=== PATIENT | female | born 1985 | race Caucasian/White ===

== ENCOUNTER 2020-10-14 08:12 | Outpatient (CLI) | payer OTHER ==
[2020-10-14 20:43] LABS: SARS-CoV-2 PCR by NAA Not Detected (NotDetected)
== END 2020-10-14 08:13 | disposition home or self-care (01) ==
LOC: CSHLAB 08:12
PROVIDERS: ATTEND Obstetrics & Gynecology
DX: Z20.822 Contact with and (suspected) exposure to COVID-19 (principal)
CPT/HCPCS: 87635; U0003; U0005

== ENCOUNTER 2020-10-18 10:19 | Inpatient (IN) | payer OTHER ==
[2020-10-18] MEDS ORDERED: Bicitra 30 ML UDCUP PO PRN (10:56)
[2020-10-18] MEDS ORDERED: Ondansetron PF 4 MG/2 ML Vial IVP PRN ×3 (10:56→17:07)
[2020-10-18] MEDS ORDERED: hydrALAZINE 20 MG/ML VIAL SLOW IVP PRN ×2 (10:56→17:07)
[2020-10-18] MEDS ORDERED: Butorphanol Tartrate 1 MG/ML VIAL SLOW IVP PRN (10:56)
[2020-10-18] MEDS ORDERED: Famotidine/PF 20 mg/2ml Vial SLOW IVP PRN (10:56)
[2020-10-18] MEDS ORDERED: CEFAZOLIN 2 GM in Premix Bag 1 BAG IVPB SCH (10:56)
[2020-10-18] MEDS ORDERED: Lactated Ringer's 1,000 ML IV SCH (10:56)
[2020-10-18] MEDS ORDERED: Promethazine HCl 25 MG/ML VIAL IM PRN ×2 (10:56→15:45)
[2020-10-18 11:12] VITALS: BMI 27.4
[2020-10-18 11:37] LABS: Hemoglobin 12.6 g/dL (12.0-15.5); Mean Corpuscular HGB CONC 33.9 g/dL (32.0-36.0); Mean Corpuscular Hemoglobin 32.1 pg (27.0-33.0); Mean Corpuscular Volume 94.9 fl (81.6-98.3); Mean Platelet Volume 11.6 fl (7.4-10.4); Platelet Count 163 10x3/uL (150-450); Red Blood Cell (RBC) Count 3.92 10x6/uL (3.90-5.03); White Blood Cell (WBC) Count 8.6 10x3/uL (3.5-10.5)
[2020-10-18] MEDS ORDERED: Bicitra 30 ML UDCUP ONE (11:43)
[2020-10-18] MEDS ORDERED: Morphine PF 10 MG/10 ML VIAL ONE (11:46)
[2020-10-18] MEDS ORDERED: Ondansetron PF 4 MG/2 ML Vial ONE (11:47)
[2020-10-18] MEDS ORDERED: PHENYLEPHRINE-NS 100 MCG/ML 10 ML SYRINGE ONE ×2 (11:47→12:13)
[2020-10-18] MEDS ORDERED: Dexamethasone 4 mg/ml Vial ONE (12:13)
[2020-10-18 12:19] LABS: Hep B Surf Ag Non-Reactive S/CO (NonReactive); Syphilis Antibody Nonreactive (Nonreactive); Syphilis Antibody Index 0.03 S/CO (<1.00 Non-Reactive)
[2020-10-18] MEDS ORDERED: Ketorolac Tromethamine 30 MG/ML VIAL ONE (14:33)
[2020-10-18] MEDS ORDERED: Promethazine HCl 25 MG SUPP PR PRN (15:45)
[2020-10-18] MEDS ORDERED: Hydrocerin (Eucerin) Cream 120 gm Jar TOP PRN (15:45)
[2020-10-18] MEDS ORDERED: diphenhydrAMINE 50 MG/ML VIAL IVP PRN (15:45)
[2020-10-18] MEDS ORDERED: Naloxone HCl 0.4 mg/ml Vial IV PRN ×3 (15:45)
[2020-10-18] MEDS ORDERED: NO PO,IM,IV OR SC NARCOTICS FOR 12HR EXCEPT BY ANESTHESIA PO SCH (15:45)
[2020-10-18 15:47] LABS: HBSAg Index 0.13 S/CO (0-0.99)
[2020-10-18] MEDS ORDERED: Bisacodyl 10 MG SUPP PR PRN (17:07)
[2020-10-18] MEDS ORDERED: Lanolin Ointment 7 GM TUBE TOP PRN (17:07)
[2020-10-18] MEDS ORDERED: NS w/ Oxytocin 30 units 500 ML IV SCH (18:00)
[2020-10-18] MEDS: Docusate Calcium (SURFAK) 240 MG CAP PO SCH (21:17)
[2020-10-18] MEDS: Ketorolac Tromethamine 30 MG/ML VIAL IVP PRN (21:17)
[2020-10-18] MEDS: diphenhydrAMINE 25 MG CAP PO PRN (21:17)
[2020-10-18] MEDS: Ferrous Sulfate 325 MG TAB PO SCH (21:26)
[2020-10-19] MEDS ORDERED: HYDROcodone/Acetaminophen 5/325 mg Tablet PO PRN (01:00)
[2020-10-19] MEDS: diphenhydrAMINE 25 MG CAP PO PRN (04:27)
[2020-10-19] MEDS: Ketorolac Tromethamine 30 MG/ML VIAL IVP PRN ×2 (04:27→14:51)
[2020-10-19 06:16] LABS: Hemoglobin 10.5 g/dL (12.0-15.5); Mean Corpuscular HGB CONC 33.9 g/dL (32.0-36.0); Mean Corpuscular Hemoglobin 32.4 pg (27.0-33.0); Mean Corpuscular Volume 95.7 fl (81.6-98.3); Platelet Count 155 10x3/uL (150-450); RBC Distribution Width 12.8 % (11.5-14.5); Red Blood Cell (RBC) Count 3.24 10x6/uL (3.90-5.03); White Blood Cell (WBC) Count 11.5 10x3/uL (3.5-10.5)
[2020-10-19] MEDS: HYDROcodone/Acetaminophen 5/325 mg Tablet PO PRN ×3 (09:17→23:58)
[2020-10-19] MEDS: Enoxaparin Sodium 40 MG/0.4 ML SYRINGE SC SCH (09:18)
[2020-10-19] MEDS: Docusate Calcium (SURFAK) 240 MG CAP PO SCH ×2 (09:18→22:35)
[2020-10-19] MEDS: Ferrous Sulfate 325 MG TAB PO SCH ×2 (09:18→22:34)
[2020-10-19] MEDS: Prenatal Vitamin 1 TAB PO SCH (09:19)
[2020-10-19] MEDS: Simethicone Chewable 80 MG TAB PO PRN (18:53)
[2020-10-19] MEDS: Ibuprofen 800 MG TAB PO PRN (22:55)
[2020-10-20] MEDS: Ferrous Sulfate 325 MG TAB PO SCH (07:39)
[2020-10-20] MEDS: Prenatal Vitamin 1 TAB PO SCH (08:50)
[2020-10-20] MEDS: Simethicone Chewable 80 MG TAB PO PRN (08:50)
[2020-10-20] MEDS: Enoxaparin Sodium 40 MG/0.4 ML SYRINGE SC SCH (08:50)
[2020-10-20] MEDS: Docusate Calcium (SURFAK) 240 MG CAP PO SCH (08:50)
[2020-10-20] MEDS: Ibuprofen 800 MG TAB PO PRN (08:51)
[2020-10-20] MEDS: HYDROcodone/Acetaminophen 5/325 mg Tablet PO PRN ×2 (08:53→12:44)
[2020-10-20 12:08] VITALS: BP 110/68; TEMP 98.4
== END 2020-10-20 13:15 | disposition home or self-care (01) | DRG 787 ==
LOC: CSHLD 10:19 → CSHPP 16:05
PROVIDERS: ADMIT Obstetrics & Gynecology; ATTEND Obstetrics & Gynecology
PROC: 10D00Z1 Extraction of Products of Conception, Low, Open Approach (ICD-10-PCS; principal; 2020-10-18)
DX: O34.211 Maternal care for low transverse scar from previous cesarean delivery (principal); O99.12 Other diseases of the blood and blood-forming organs and certain disorders involving the immune mechanism complicating childbirth; D68.61 Antiphospholipid syndrome; Z20.822 Contact with and (suspected) exposure to COVID-19; Z3A.37 37 weeks gestation of pregnancy; Z37.0 Single live birth
CPT/HCPCS: 51702; 85027; 86780; 86850; 86900; 86901; 87340; J1100; J1650; J1885; J2274; J2405; Q0163